=== PATIENT | male | born 1965 | race Caucasian/White ===

== ENCOUNTER 2016-07-05 15:28 | Emergency (ER) | payer MEDICAID, OTHER ==
[~2016-07-05] VITALS: Ht 177.8 cm; Wt 77.3 kg
[2016-07-05 15:29] VITALS: BP 127/86; PULSE 88; RESP 28; O2SAT 99
--- NOTE | 2016-07-05 16:19 | ED.REPORT ---
HPI-Psychiatric Illness Date of Service Jul 05, 2016 ED Provider: Anuj Galaviz DO The patient is a 50 year old male who presents to the emergency department for suicidal ideation. The patient states, "I have feet pain that makes my entire body hurt. It makes my mental illness worse and I just want to ." His suicidal ideations are due to his foot pain. He has experienced foot pain for the last 20 years but his pain has gradually worsened. He does not know why his feet hurt. He is not able to sleep due to his pain. The patient has been homeless for the last few months. He normally goes to [facility] in [place] but he has been trespassed from there. He has been admitted psychiatrically in the past. He has attempted suicide in the past. Nursing Notes Stated Complaint: FEET PAIN/SUICIDAL IDEATION Chief Complaint: Psychiatric Complaint Nursing Notes Reviewed: Yes Allergies: Coded Allergies: Sulfa (Sulfonamide Antibiotics) (Verified Allergy, Unknown, 07/05/16) General Time Seen by MD: 16:16 Chief Complaint Suicidal ideation Hx Obtained From: Patient Arrived By: Wheelchair Onset Occurred: More than a week ago... Symptom Duration: Since onset Progression Since Onset: Constant, Gradually worsening Location: : Leg left: Leg right Quality: Painful Severity: Current: Moderate Severity: Maximum: Moderate Recent Healthcare: No recent hospitalization, Recent doctor visit Similar Sx Previous: Yes Risk-Psychiatric Illness Suicide Risk Stratification Suicide Risk Factors - Adult: : Previous attempt: Prior psych admission RF Statements: Risk factors reviewed Past Medical History Past Medical History HIV Hepatitis C Bipolar affective disorder Schizophrenia Family History Noncontributory Social History Lives in [place]. History of meth abuse. Other Social History: Good social support, Homeless Ambulatory Status Independent Review of Systems Skin: Reports Rash Psychiatric: Reports: Stress, Suicidal ideation Complete sys rev & neg: except as marked. Musculoskeletal: Reports: Extremity pain Physical Exam Initial Vital Signs Vital Signs (First) Date Time Temp Pulse Resp B/P Pulse Ox O2 Delivery O2 Flow Rate FiO2 07/05/16 15:29 36.0 88 28 127/86 99 Room Air Initial VS: Reviewed Head / Eyes: Atraumatic, Normocephalic, PERRL ENT: Mucous membranes moist, Conjunctiva normal, No scleral icterus Neck: Supple, Non-tender, Full range of motion Respiratory: Breath sounds normal, Clear to auscultation, No respiratory distress Cardiovascular: Regular rate & rhythm, Heart sounds normal, Intact distal pulses Abdomen / GI: Soft, Non-tender, No guarding, No rebound, No distention Lymphatic: No lymphadenopathy Extremities: Vascular intact, No swelling General/Constitutional: Awake, Alert Distress / Hydration: Positive: Distress moderate Neurologic: Oriented X3, Speech NL, No motor deficits, No sensory deficits Abnormal Mood/Affect: Positive: Pressured speech Abnormal Thinking / Perception: Positive: Suicidal, no plan Ankle / Foot: Vascular intact He has a 1 cm ulcer on the dorsum of his left foot. There are multiple calluses on the plantar aspect of both feet. Good pulses. Interpretation & Diagnostics Interpretation & Diagnostics: Urine drug screen: positive for methamphetamines and marijuana Lab Results Interpretation Result Diagram: 07/05/16 0000 07/05/16 1704 Test 07/05/16 00:00 07/05/16 17:04 07/05/16 17:44 White Blood Count 5.2th/mm3 (3.8-10.1) Red Blood Count 4.48mil/mm3 (4.40-5.80) Hemoglobin 12.9g/dL (13.8-17.2) Hematocrit 38.0% (41.0-50.0) Mean Corpuscular Volume 84.8fL (81-100) Mean Corpuscular Hemoglobin 28.8pg (27.0-35.0) Mean Corpuscular Hemoglobin Concent 33.9% (32.0-37.0) Red Cell Distribution Width 15.8% (12.3-15.4) Platelet Count 112bil/L (150-400) Neutrophils (%) (Auto) 63.6% (40-74) Lymphocytes (%) (Auto) 28.7% (14-46) Monocytes (%) (Auto) 5.4% (4-12) Eosinophils (%) (Auto) 1.7% (0-5) Basophils (%) (Auto) 0.4% (0-3) Sodium Level 138mEq/L (134-144) Potassium Level 3.8mEq/L (3.5-5.2) Chloride Level 106mEq/L (97-108) Carbon Dioxide Level 17mmol/L (18-29) Blood Urea Nitrogen 18mg/dL (6-24) Creatinine 1.11mg/dL (0.76-1.27) Estimat Glomerular Filtration Rate 74mL/min (>59) Glucose Level 111mg/dL (60-99) Calcium Level 8.9mg/dL (8.5-10.1) Total Bilirubin 0.5mg/dL (0.0-1.2) Aspartate Amino Transf (AST/SGOT) 105U/L (0-50) Alanine Aminotransferase (ALT/SGPT) 94U/L (0-44) Alkaline Phosphatase 129U/L (25-150) Total Protein 6.9g/dL (6.4-8.4) Albumin 3.5g/dL (3.4-5.0) Thyroid Stimulating Hormone (TSH) 0.281uIU/mL (0.450-4.500) Almond Level 0.1mEq/L (0.5-1.5) Re-Eval/Medical Decision Med Decision/Clinical Course Suicidal, patient reports that the trigger is his ongoing chronic foot pain of unclear etiology. Given the clinical history of 20 years of symmetric plantar pain that feels like electric shocks this could be a peripheral neuropathy or plantar fasciitis, seems unlikely this is a serious life-threatening infection given the chronicity of symptoms. Currently care is being transferred to Dr. Paulino for definitive treatment and evaluation of mental health status. Source of Hx: Old records, Friend Re-Evaluation/Progress : Time of Eval: 16:55 Re-Evaluation/Progress Note: Rechecked the patient. Consultation : Consulted With: pulley worker Call Returned at: 17:00 Inspector Cold Working: Will see patient Counseled Regarding: Diagnosis, Lab results Discharge & Departure Impression: Primary Impression: Suicidal ideations Discharge Condition All VS Reviewed: Yes Condition: Stable Care Transferred to: Dr. Paulino Care Transferred at: 18:01 Pratik Attestation Portions of this note were transcribed by Ligia Agee. I, Dr. Galaviz personally performed the history, physical exam and medical decision-making; I reviewed and confirmed the accuracy of the information in the transcribed note. Signed by: Pratik Vargas, 07/05/2016 and Anuj Tinoco DO Jul 05, 2016 16:19 Ligia Agee Jul 05, 2016 16:27
[2016-07-05] MEDS ORDERED: LORazepam 2 mg Tablet PO ONE (16:30)
[2016-07-05 17:13] LABS: BASOPHILS % (AUTO) 0.4 % (0-3); EOSINOPHILS % (AUTO) 1.7 % (0-5); MONOCYTES % (AUTO) 5.4 % (4-12); Mean Corpuscular Hemoglobin 28.8 pg (27.0-35.0); Mean Corpuscular Volume 84.8 fL (81-100); NEUTROPHILS % (AUTO) 63.6 % (40-74); Platelet Count 112 bil/L (150-400)
[2016-07-05 20:32] VITALS: BP 110/86; PULSE 93; RESP 18; O2SAT 97
[2016-07-05] MEDS ORDERED: HYDR50CA3 PO (21:18)
[2016-07-05] MEDS ORDERED: EFAV1TAB PO (21:22)
[2016-07-05] MEDS ORDERED: OLAN20TA29 PO (21:22)
[2016-07-05] MEDS ORDERED: LITH300T2 PO (21:22)
[2016-07-05] MEDS ORDERED: LAMO100T2 PO (21:22)
[2016-07-05] MEDS ORDERED: Mupirocin 2% 22 Gm Ointment TOPICAL ONE (22:00)
[2016-07-05] MEDS ORDERED: HYDROcodone-APAP 5-325 mg Tablet PO ONE (22:00)
[2016-07-05] MEDS ORDERED: _HYDROcodone/APAP 5-325 mg Tablet PO PRN (23:35)
[2016-07-06] MEDS ORDERED: MUPI15CR TOPICAL (00:24)
[2016-07-06] MEDS ORDERED: HYDR-4003 PO (00:24)
[2016-07-06 01:00] VITALS: BP 106/73; PULSE 98; RESP 16; O2SAT 98
== END 2016-07-06 00:50 | disposition home or self-care (01) ==
LOC: SED 15:28
DX: R45.851 Suicidal ideations (principal); M79.672 Pain in left foot; G89.29 Other chronic pain; F15.20 Other stimulant dependence, uncomplicated; S90.812A Abrasion, left foot, initial encounter; X58.XXXA Exposure to other specified factors, initial encounter; Y92.009 Unspecified place in unspecified non-institutional (private) residence as the place of occurrence of the external cause; Y93.89 Activity, other specified; Y99.8 Other external cause status; F25.0 Schizoaffective disorder, bipolar type; Z21 Asymptomatic human immunodeficiency virus [HIV] infection status; Z59.0 Homelessness; Z91.5 Personal history of self-harm; Z88.2 Allergy status to sulfonamides